=== PATIENT | male | born 1945 | race Caucasian/White ===

== ENCOUNTER 2023-08-17 06:50 | Day surgery (SDC) | payer MEDICARE, MEDICAID ==
[~2023-08-17] VITALS: Ht 165.1 cm; Wt 75.0 kg
[~2023-08-17 06:50] MED LIST: ACET-895 PO; ALB0.5UD NEB; ASCO500T19 PO; ASPI-611 PO; CARV-50 PO; DULA0.75 SUBCUT; FURO40TA4 PO; INSU100V41 SQ; LEVO125T8 PO; LISI40TA13 PO; MELA3CAP2 PO; OMEP40CA21 PO; ROSU20TA2 PO; SERT50TA PO; WARF4TAB69 PO
[2023-08-17] MEDS ORDERED: albumin 25% 100mL bottle x 1 IV PRN (07:15)
[2023-08-17 07:30] VITALS: RESP 16; O2SAT 93
[2023-08-17 07:31] VITALS: BP 150/67; PULSE 60; RESP 16; TEMP 97.8; O2SAT 93
[2023-08-17 09:06] LABS: PROTHROMBIN TIME 47.2 SECONDS (9.0-12.0)
[2023-08-17 09:10] LABS: INR 4.9 INR
== END 2023-08-17 09:25 ==
LOC: SSTAY O 06:50
PROVIDERS: ATTEND Radiology Diagnostic Radiology
DX: J90 Pleural effusion, not elsewhere classified (principal); Z53.8 Procedure and treatment not carried out for other reasons; I11.0 Hypertensive heart disease with heart failure; I50.9 Heart failure, unspecified; I25.10 Atherosclerotic heart disease of native coronary artery without angina pectoris; E11.9 Type 2 diabetes mellitus without complications; E78.00 Pure hypercholesterolemia, unspecified; E03.9 Hypothyroidism, unspecified; Z86.73 Personal history of transient ischemic attack (TIA), and cerebral infarction without residual deficits; Z79.01 Long term (current) use of anticoagulants; Z79.82 Long term (current) use of aspirin; Z79.890 Hormone replacement therapy; Z79.899 Other long term (current) drug therapy; Z95.0 Presence of cardiac pacemaker; Z95.5 Presence of coronary angioplasty implant and graft
CPT/HCPCS: 36415; 85610

== ENCOUNTER 2023-08-28 07:40 | Day surgery (SDC) | payer MEDICARE, MEDICAID ==
[2023-08-28] VITALS (8 sets, daily range): BP systolic 107–142; BP diastolic 58–75; PULSE 60–80; RESP 18; TEMP 97.2; O2SAT 92–94
[~2023-08-28] VITALS: Ht 165.1 cm; Wt 75.8 kg
[~2023-08-28 07:40] MED LIST changes: -MELA3CAP2 PO
[2023-08-28] MEDS ORDERED: GABA100C PO (08:09)
[2023-08-28] MEDS ORDERED: TRAZ-251 PO (08:10)
[2023-08-28] MEDS ORDERED: QUELT PO (08:10)
[2023-08-28] MEDS ORDERED: albumin 25% 100mL bottle x 1 IV PRN (08:10)
[2023-08-28 09:15] LABS: INR 1.4 INR; PROTHROMBIN TIME 14.5 SECONDS (9.0-12.0)
== END 2023-08-28 10:52 ==
LOC: SSTAY O 07:40
PROVIDERS: ATTEND Radiology Diagnostic Radiology
DX: J90 Pleural effusion, not elsewhere classified (principal); I25.10 Atherosclerotic heart disease of native coronary artery without angina pectoris; E78.00 Pure hypercholesterolemia, unspecified; I10 Essential (primary) hypertension; E11.9 Type 2 diabetes mellitus without complications; E03.9 Hypothyroidism, unspecified; Z86.73 Personal history of transient ischemic attack (TIA), and cerebral infarction without residual deficits; Z95.0 Presence of cardiac pacemaker; Z95.1 Presence of aortocoronary bypass graft; Z87.891 Personal history of nicotine dependence; Z88.5 Allergy status to narcotic agent; Z88.8 Allergy status to other drugs, medicaments and biological substances; Z79.899 Other long term (current) drug therapy; Z79.4 Long term (current) use of insulin; Z79.01 Long term (current) use of anticoagulants
CPT/HCPCS: 32555; 36415; 85610; C1729